=== PATIENT | male | born 1955 | race Hispanic/Latino ===

== ENCOUNTER 2023-06-28 12:08 | Emergency (ER) | payer BC ==
[2023-06-28 13:40] LABS: #Basophils 0.1 10x3/uL (0.0-0.2); #Eosinphils 0.1 10x3/uL (0.0-0.5); #Monocytes 1.1 10x3/uL (0.0-1.1); #Neutrophils 15.6 10x3/uL (1.5-8.4); %Basophils 0.3 % (0.0-2.0); %Eosinophils 0.7 % (0.0-6.0); %Lymphocytes 2.8 % (18.0-47.0); %Monocytes 6.4 % (0.0-10.0); %Neutrophils 88.9 % (40.0-75.0); Hematocrit 36.7 % (38.8-50.0); Hemoglobin 11.5 g/dL (13.5-17.5); Mean Corpuscular HGB CONC 31.3 g/dL (32.0-36.0); Mean Corpuscular Hemoglobin 27.3 pg (27.0-33.0); Mean Platelet Volume 10.5 fl (7.4-10.4); Platelet Count 333 10x3/uL (150-450); RBC Distribution Width 15.8 % (11.5-14.5); Red Blood Cell (RBC) Count 4.22 10x6/uL (4.32-5.72); White Blood Cell (WBC) Count 17.5 10x3/uL (3.5-10.5)
[2023-06-28 13:46] LABS: ALT (SGPT) 37 U/L (8-55); AST (SGOT) 24 U/L (5-34); Albumin 3.3 g/dL (3.4-4.8); Alkaline Phosphatase 130 U/L (40-110); Anion Gap 15 mmol/L (10-20); BUN (Urea Nitrogen) 23 mg/dL (8.4-25.7); Bilirubin, Total 0.5 mg/dL (0.2-1.2); Calc. Creatinine Clearance 0 mL/min (70-130); Calcium 8.9 mg/dL (7.8-10.44); Carbon Dioxide 20 mmol/L (23-31); Chloride 100 mmol/L (98-107); Estimated GFR 70; Globulin 3.8 g/dL (2.4-3.5); Glucose 319 mg/dL (80-115); Potassium 4.9 mmol/L (3.5-5.1); Protein, Total 7.1 g/dL (5.8-8.1); Sodium 130 mmol/L (136-145)
[2023-06-28 14:37] LABS: Actual Bicarbonate (HCO3v) 24.5 mEq/L (22-28); Analyzer IN Cardio CS ER; Base Excess -0.4 mEq/L (-2 - +2); Chloride (VBG) 100 mmol/L (98-106); Hematocrit-VBG 37 % (42.0-52.0); Hemoglobin (Hb) 12.5 g/dL (12.6-17.4); Potassium (VBG) 4.76 mmol/L (3.70-5.30); Puncture Site Other Site; RapidComm Collect By LAB; Sodium 132 mmol/L (133-146); pH (venous) 7.393 (7.32-7.43)
[2023-06-28 14:46] LABS: Bilirubin Neg (Negative); Blood, Urine 250 (Negative); Clarity Cloudy (Clear); Glucose, Urine (Dipstick) 50 mg/dL (Negative); Ketone, Urine Negative (Negative); Leukocyte 500 (Negative); Nitrite Negative (Negative); Protein, Urine (Dipstick) 100 mg/dl (Neg-Trace)
[2023-06-28 14:56] LABS: Bacteria/HPF 3+ HPF (None Seen); CAUTI Indications for Culture Immunosuppressed; RBC/HPF 21-50 HPF (0-3); WBC/HPF 21-50 HPF (0-3)
[2023-06-28 14:59] LABS: Mucous/LPF 2+ LPF (<2+)
[2023-06-28 15:02] LABS: Urine Culture Reflex Yes Yes
[2023-06-28 15:19] LABS: SARS-CoV-2 NAA Rapid Test Not Detected (NotDetected)
[2023-06-28] MEDS ORDERED: cefTRIAXone (ROCEPHIN) 1 GM VIAL ONE (15:52)
== END 2023-06-28 16:25 | disposition home or self-care (01) ==
LOC: CSHERS 12:08
DX: N39.0 Urinary tract infection, site not specified (principal); R73.9 Hyperglycemia, unspecified
CPT/HCPCS: 36415; 36416; 71045; 80053; 81001; 82805; 83605; 85025; 87040; 87086; 93005; 96361; 96365; J0696